=== PATIENT | female | born 1980 | race Caucasian/White ===

== ENCOUNTER → 2022-11-30 18:30 | Outpatient (CLI) | payer MEDICAID, SELFPAY ==
[2022-11-30 19:56] LABS: Alanine Aminotransferase 19 U/L (12-78); Albumin Level 4.6 g/dl (3.5-5.0); Alkaline Phosphatase 94 U/L (38-126); Aspartate Amino Transferase 26 U/L (14-36); Basophils % 0.6 % (0.1-2.0); Bilirubin,Total 0.4 mg/dl (0.2-1.3); Blood Urea Nitrogen 11 mg/dl (7-17); Calcium 9.4 mg/dl (8.4-10.2); Carbon Dioxide 29 mmol/L (22.0-30.0); Chloride 96 mmol/L (98-107); Chol/HDL Ratio 3.3 (1-3.5); Cholesterol 198 mg/dl (140-200); Eosinophils # 0.1 K/mm3 (0.0-0.4); Estimated Glomerular Filt Rate 110 ml/min (>60); GFR (African American) 133 ML/MIN (>60); Globulin 2.3 g/dL (1.3-3.2); Glucose 107 mg/dl (74-100); HDL Cholesterol 60 mg/dl (40-60); Hematocrit 43.7 % (37.0-47.0); Hemoglobin 14.2 g/dL (12.2-16.2); Lymphocytes # 2.3 K/mm3 (0.7-4.5); Lymphocytes % 40.2 % (10-50); Mean Corpuscular HGB Conc 32.4 g/dL (31.8-35.4); Mean Corpuscular Hemoglobin 30.2 pg (27.0-31.2); Mean Corpuscular Volume 93.1 fl (81-99); Mean Platelet Volume 9.4 fl (7.4-10.4); Monocytes # 0.3 K/mm3 (0.1-1.0); Monocytes % 4.4 % (1.7-9.3); Neutrophils % 52.9 % (37.0-80.0); Platelet Count 296 K/mm3 (142-424); Red Cell Distribution Width 13.5 % (11.5-17.5); Sodium 139 mmol/L (136-145); Total Protein,Serum 6.9 g/dl (6.3-8.2); Triglycerides 122 mg/dl (30-150); VLDL Cholesterol 24 mg/dL (0-40); White Blood Count 5.8 K/mm3 (4.8-10.8)
[2022-11-30 20:07] LABS: Direct LDL Cholesterol 110.01 mg/dL (100-129)
[2022-11-30 20:10] LABS: Hemoglobin A1C 5.5 % (4.0-6.0)
[2022-11-30 20:13] LABS: 25-OH Vitamin D, Total 35.6 ng/mL (30-100)
[2022-11-30 20:27] LABS: Thyroid Stimulating Hormone 1.43 uIU/mL (0.465-4.68)
[2022-11-30 20:46] LABS: Vitamin B12 218 pg/mL (239-931)
[2022-12-02 12:10] LABS: HIV Screen 4th Generation wRfx Non Reactive (Non Reactive)
== END ==
PROVIDERS: PCP Nurse Practitioner; Visit Provider Nurse Practitioner
DX: E78.5 Hyperlipidemia, unspecified (principal); F19.11 Other psychoactive substance abuse, in remission; F32.A Depression, unspecified; F41.9 Anxiety disorder, unspecified; R53.83 Other fatigue; Z13.1 Encounter for screening for diabetes mellitus; Z13.29 Encounter for screening for other suspected endocrine disorder; Z11.4 Encounter for screening for human immunodeficiency virus [HIV]
CPT/HCPCS: 80053; 80061; 82306; 82607; 83036; 84443; 85025; 86703; G0432

== ENCOUNTER → 2022-12-06 15:27 | Outpatient (CLI) | payer MEDICAID, SELFPAY ==
--- NOTE | 2022-12-06 15:27 | MM_ITS ---
PROCEDURE INFORMATION: Exam: MG Bilateral Screening 3D Mammography Exam date and time: 12/06/2022 3:18 PM Age: 42 years old Clinical indication: Screening examination TECHNIQUE: Imaging protocol: Bilateral Screening tomosynthesis and 2D mammography including computer-aided detection (CAD) when performed. COMPARISON: No relevant prior studies available. FINDINGS: MAMMOGRAPHY: Breast composition: There are scattered areas of fibroglandular density. Mass: None. Architectural distortion: None. Calcifications: No suspicious calcifications. Asymmetric density: None. Skin thickening: None. Axillary adenopathy: None. IMPRESSION: No mammographic evidence of malignancy. Annual screening is recommended unless otherwise clinically indicated. ASSESSMENT: BI-RADS Category 1: Negative
== END ==
PROVIDERS: PCP Nurse Practitioner; Visit Provider Nurse Practitioner
DX: Z12.31 Encounter for screening mammogram for malignant neoplasm of breast (principal)
CPT/HCPCS: 77063; 77067

== ENCOUNTER 2024-06-02 16:25 | Outpatient (CLI) | payer BC, MEDICAID, SELFPAY ==
[2024-06-02 18:51] LABS: Basophils % 0.7 % (0.1-2.0); Eosinophils # 0.2 K/mm3 (0.0-0.4); Eosinophils % 2.7 % (0.1-12.0); Hemoglobin 14.5 g/dL (12.2-16.2); Lymphocytes # 2.8 K/mm3 (0.7-4.5); Lymphocytes % 47.2 % (10-50); Mean Corpuscular HGB Conc 34.5 g/dL (31.8-35.4); Mean Corpuscular Hemoglobin 30.5 pg (27.0-31.2); Mean Corpuscular Volume 88.4 fl (81-99); Mean Platelet Volume 8.5 fl (7.4-10.4); Monocytes # 0.4 K/mm3 (0.1-1.0); Monocytes % 5.9 % (1.7-9.3); Neutrophils # 2.6 K/mm3 (1.8-7.8); Neutrophils % 43.5 % (37.0-80.0); Platelet Count 287 K/mm3 (142-424); Red Blood Count 4.75 M/mm3 (4.20-5.40); Red Cell Distribution Width 13.3 % (11.5-17.5); White Blood Count 5.9 K/mm3 (4.8-10.8)
[2024-06-02 19:02] LABS: Albumin Level 4.5 g/dl (3.5-5.0); Chloride 102 mmol/L (98-107); Potassium 3.3 mmoL/L (3.5-5.1); Sodium 139 mmol/L (136-145)
[2024-06-02 19:05] LABS: Alanine Aminotransferase 53 U/L (12-78); Alkaline Phosphatase 103 U/L (38-126); Amylase 111 U/L (30-110); Anion Gap 12.3 mEq/L (5-15); Aspartate Amino Transferase 37 U/L (14-36); Bilirubin,Total 0.5 mg/dl (0.2-1.3); Blood Urea Nitrogen 14 mg/dl (7-17); Calcium 9.3 mg/dl (8.4-10.2); Carbon Dioxide 28 mmol/L (22.0-30.0); Estimated Glomerular Filt Rate 91 ml/min (>60); GFR (African American) 110 ML/MIN (>60); Globulin 2.2 g/dL (1.3-3.2); Glucose 120 mg/dl (74-100); Lipase 105 U/L (23-300); Total Protein,Serum 6.7 g/dl (6.3-8.2)
[2024-06-04 06:16] LABS: HBsAg Screen Negative (Negative); HCV Ab Non Reactive (Non Reactive); Hep A Ab, IGM Negative (Negative); Hep B Core Ab, IgM Negative (Negative)
== END 2024-06-02 23:59 | disposition home or self-care (01) ==
LOC: LAB.DROPOF 06-03 09:09
PROVIDERS: PCP Nurse Practitioner; Visit Provider Nurse Practitioner
DX: R19.7 Diarrhea, unspecified (principal); R10.9 Unspecified abdominal pain
CPT/HCPCS: 80053; 80074; 82150; 83690; 85025

== ENCOUNTER 2024-11-25 16:51 | Outpatient (CLI) | payer BC, SELFPAY ==
--- NOTE | 2024-11-25 16:45 | MM_ITS ---
PROCEDURE INFORMATION: Exam: MG Bilateral Screening 3D Mammography Exam date and time: 11/25/2024 4:55 PM Age: 44 years old Clinical indication: Screening examination. TECHNIQUE: Imaging protocol: Bilateral Screening tomosynthesis and 2D mammography including computer-aided detection (CAD) when performed. COMPARISON: MG MM DIG SCREENING MAMM BI W/CAD 12/06/2022 3:18 PM FINDINGS: MAMMOGRAPHY: Breast composition: There are scattered areas of fibroglandular density. Mass: None. Architectural distortion: None. Calcifications: No suspicious calcifications. Asymmetric density: None. Skin thickening: None. Axillary adenopathy: None. IMPRESSION: No mammographic evidence of malignancy. Annual screening is recommended unless otherwise clinically indicated. ASSESSMENT: BI-RADS Category 1: Negative.
== END 2024-11-25 23:59 | disposition home or self-care (01) ==
LOC: RAD 16:52
PROVIDERS: PCP Nurse Practitioner; Visit Provider Nurse Practitioner
DX: Z12.31 Encounter for screening mammogram for malignant neoplasm of breast (principal)
CPT/HCPCS: 77063; 77067